=== PATIENT | female | born 1995 | race African-American/Black ===

== ENCOUNTER 2016-12-03 00:03 | Emergency (ER) | payer SELFPAY ==
[~2016-12-03] VITALS: Ht 175.3 cm; Wt 118.2 kg
[2016-12-03 00:09] VITALS: TEMP 98.8
[2016-12-03 00:59] LABS: BASO % 0.3 % (0.0-2.0); EOS # 0.1 (0.0-0.7); GRAN # 4.8 (1.4-6.5); GRAN % 53.9 % (42.2-75.2); HEMATOCRIT 42.7 % (37.0-47.0); HEMOGLOBIN 14.6 g/dl (12.5-16.0); LYMPH # 3.3 (1.2-3.4); MEAN CELL VOLUME 87 fl (80.0-100.0); MEAN CORPUSCULAR HEMOGLOBIN 30 pg (27.0-31.0); MEAN CORPUSCULAR HGB CONC 34 g/dl (33.0-37.0); MEAN PLATELET VOLUME 9.6 fl (7.4-10.4); MONO # 0.7 (0.1-0.6); MONO % 7.6 % (1.7-9.3); PLATELET COUNT 334 K/mm3 (130-400); RED BLOOD COUNT 4.92 M/mm3 (4.10-5.30); REDCELL DISTRIBUTION WIDTH-CV 12.6 % (11.5-14.5); WHITE BLOOD COUNT 8.9 K/mm3 (4.8-10.8)
[2016-12-03 01:13] LABS: ADJUSTED CALCIUM 8.8 mg/dL (8.4-10.2); ALANINE AMINOTRANSFERASE 32 U/L (9-52); ALBUMIN 4.4 gm/dL (3.5-5.0); ALKALINE PHOSPHATASE 75 U/L (50-136); ANION GAP 13 mmol/L (7-16); BILIRUBIN,TOTAL 0.7 mg/dL (0.0-1.0); BLOOD UREA NITROGEN 11 mg/dL (7-17); CALCIUM 9.1 mg/dL (8.4-10.2); CARBON DIOXIDE 24 mmol/L (22-30); CHLORIDE 102 mmol/L (98-107); CREATININE, serum 0.86 mg/dL (0.52-1.25); GLUCOSE 90 mg/dL (74-106); LIPASE 74 U/L (23-300); POTASSIUM 3.9 mmol/L (3.4-5.0); SODIUM 139 mmol/L (137-145); TOTAL PROTEIN 7.5 gm/dL (6.4-8.2)
[2016-12-03 01:30] LABS: TROPONIN-I < 0.012 ng/mL (0.000-0.034)
[2016-12-03 01:42] LABS: PH 6 (5-8); URINE APPEARANCE Hazy; URINE BACTERIA Rare /hpf; URINE BILIRUBIN Negative (NEGATIVE); URINE BLOOD Negative (NEGATIVE); URINE COLOR Yellow; URINE GLUCOSE Negative (NEGATIVE); URINE KETONE 1+ (NEGATIVE); URINE RBC 0-2 /hpf; URINE UROBILINOGEN Negative (NEGATIVE); URINE WBC 0-2 /hpf
[2016-12-03 02:09] VITALS: BP 145/90; PULSE 83
== END 2016-12-03 02:25 | disposition home or self-care (01) ==
LOC: COL.ER 00:03
PROVIDERS: Emergency Medicine
DX: R41.82 Altered mental status, unspecified (principal); R53.1 Weakness; R51 Headache; R42 Dizziness and giddiness
CPT/HCPCS: J7030

== ENCOUNTER 2020-11-30 13:32 | Emergency (ER) | payer BC ==
[~2020-11-30] VITALS: Ht 175.3 cm; Wt 113.6 kg
[2020-11-30 14:06] VITALS: TEMP 98.8
[2020-11-30] MEDS ORDERED: PROTONIX20 MG PO (14:09)
[2020-11-30] MEDS ORDERED: ZOLOFT 100MG100 MG PO (14:09)
[2020-11-30] MEDS ORDERED: APRI 0.15 MG-0.1 TAB PO (14:09)
[2020-11-30] MEDS ORDERED: NORCO 325 MG-51 TAB PO (17:38)
[2020-11-30 17:44] VITALS: BP 121/94; PULSE 122
== END 2020-11-30 17:47 | disposition home or self-care (01) ==
LOC: COL.ER 13:32
DX: N75.1 Abscess of Bartholin's gland (principal)
CPT/HCPCS: J2270